=== PATIENT | male | born 1950 | race Caucasian/White ===

== ENCOUNTER → 2022-04-27 11:07 | Outpatient (CLI) | payer OTHER, SELFPAY ==
[2022-04-27 13:28] LABS: COVID-19 CEPHEID PCR (VTM/NP) Negative
== END ==
PROVIDERS: Referring Provider Internal Medicine Cardiovascular Disease; Visit Provider Internal Medicine Cardiovascular Disease
DX: I21.11 ST elevation (STEMI) myocardial infarction involving right coronary artery (principal); Z20.822 Contact with and (suspected) exposure to COVID-19
CPT/HCPCS: C9803; U0003; U0005

== ENCOUNTER 2023-11-07 08:32 | Day surgery (SDC) | payer OTHER, SELFPAY ==
[2023-10-31 11:42] VITALS: BMI 37.2
[2023-11-07] VITALS (11 sets, daily range): BP systolic 103–163; BP diastolic 57–97; PULSE 54–87; RESP 12–18; TEMP 35.9–36.7; O2SAT 91–99; BMI 37.2; BMI 38.7
--- NOTE | 2023-11-07 06:00 | DI.RAD.S_ITS ---
PROCEDURE: XR KNEE RT 1TO2V INDICATIONS: TKA TECHNIQUE: 2 view(s) of the knee acquired. COMPARISON: None. FINDINGS: Bones: Patient is status post knee joint arthroplasty. Hardware components are in expected positions. Visualized bony structures are intact. Soft tissues: Overlying postoperative changes are noted. IMPRESSION: Expected immediate postoperative appearance, status post total right knee arthroplasty. Dictated by: Marv Galvan M.D. on 11/07/2023 at 16:52 Approved by: Marv Galvan M.D. on 11/07/2023 at 16:53
[2023-11-07] MEDS: ACETAMINOPHEN 325 MG TABLET 975 MG PO (09:09)
[2023-11-07] MEDS: VANCOMYCIN 1,000 MG/200 ML PIGGYBACK 200 MG IV (10:20)
--- NOTE | 2023-11-07 10:56 | PM.PREOP ---
Pre-operative Note Interval Note History & Physical reviewed/Exam performed by Physician: Yes Changes to H&P: No
--- NOTE | 2023-11-07 10:57 | P.OP_ITS ---
Operative Date/Time/Diagnoses Date of procedure: 11/07/23 Time of procedure: 11:30 Pre-op diagnosis: Right knee OA Post-op diagnosis: same Procedure & Clinicians Procedure: Right total knee arthroplasty navigated with Cori robotic assistance Same procedure as scheduled: Yes Indications: The patient has had progressively worsening right knee pain with radiographic changes consistent with arthritis. Non-operative management has failed and the patient has requested total knee replacement. The risks, benefits and alternatives to surgery were discussed with the patient prior to proceeding. Risks discussed included, but were not limited to, failure to relieve pain, stiffness, infection, nerve damage, deep venous thrombosis, pulmonary embolism, stroke, coma, heart attack, permanent paralysis and , as well as the potential need for eventual revision of the prosthetic. Surgeon: Sharee Martinez Loan Operations Specialist: Tamica Garay Click Yes if Unassisted: Yes Anesthesia Type: Spinal Operative Notes Findings: Severe right knee OA, adequate stability Closure Type: primary Specimen(s): none sent Prosthetic devices, grafts, tissues, transplants, or devices: Martinez and nephew journey BCS 2 size 7 femur, size 6 tibia, 9 mm polyethylene, patella 35 oval Estimated Blood Loss (mL): 250 Blood products transfused: none Tourniquet time (min): 117 Procedure in detail: The patient was seen in the pre-operative area, where the patient identified the right knee as the operative site and this was marked with my initials. The patient received pre-operative antibiotics, and was taken to the operating room and placed on the operative table in the supine position. After satisfactory anesthesia, a aircraft time clerk out was performed. The right leg was encircled with a tourniquet about the proximal thigh, and the leg was prepared from the toes to the tourniquet with ChloroPrep in the usual fashion and draped through sterile drapes. The leg was elevated and exsanguinated with Eschmark bandage and the tourniquet inflated to [250] mmHg pressure. A PA was used during the procedure and was essential for intraoperative retraction and safe implantation of the components. The knee was approached through an approximately 18 cm incision centered over the patella and carried into the knee through a medial parapatellar arthrotomy. A portion of the medial and lateral meniscus was resected. Soft tissue was carefully mobilized around the patella the patella was measured with a caliper. Bone was resected from the patella and the patellar height was reconstituted with up an appropriate sized patellar component. A cover was then placed on the patella. A small amount of additional medial and lateral meniscus was resected. The ACL and PCL were released. Two Cori pins were placed in the femur and in the tibia with a tibial guide for robot assisted navigation. The patella was measured and 9 mm of bone was resected from the patella. It was an oval patella. Drill holes were made for patellar component. There was good bahai of the patella thickness. The patient was placed through a range of motion measurements were taken for stressed and nonstress range of motion knee with plan for robotic assisted resection of the distal femur and proximal tibia. The femur and tibia were carefully traced and navigated. A plan was taken and improved. A bur was used to resect the femoral bone for the distal femoral cut. The 5 in 1 cutting block was applied. Rotation and overall position was carefully checked. Finishing cuts were made on the femur with the 5 in 1 block. It looked like adequate resection of the anterior and posterior bone. The guide was then placed on the tibial guide and carefully navigated. Oscillating saw was used to resect the proximal tibia. I then placed the knee in extension and checked for any residual bone and meniscus injected with Marcaine locally drained the popliteal cyst and achieved hemostasis posteriorly with the cautery. The patient was placed in extension residual medial and lateral meniscus as well as any residual bone was carefully resected. Hemostasis was achieved especially posteriorly. Additional local was injected into the posterior capsule. The femoral component was trial was placed and the notch was finished. The rotation was assessed and the appropriate size femoral guide was placed on the distal femur and finishing cuts were made. There was no evidence of notching. The anterior, posterior and chamfer cuts were then made. The posterior osteophytes and soft tissues were then removed. The posterior capsule was injected with part of a mixture of 60 ml 0.25% Marcaine mixed with 266 mg Exparel for post operative pain control. The remainder of this mixture was injected into the capsule and subcutaneous tissues during cement curing. The tibial and femoral components were then placed and the knee placed through a range of motion. Range of motion was [0-130], with good stability throughout the range. The trials were then removed, and the tibia was finished. The bone was prepared with pulsatile lavage, and dried with a sponge. Cement was applied and the final prosthetics placed. Excess cement was removed during and after cement curing. A brief Betadine soak was performed. After confirming there was no extruded cement posteriorly, the final tibial insert was placed. The knee was copiously irrigated and the tourniquet deflated. Hemostasis was obtained with the bovie cautery. The capsule was closed with interrupted nonabsorbable suture. The subcutaneous layer was closed with barbed sutures, and the skin with a running 3-0 V-Lock suture and Surgical glue. An Aquacel Ag dressing was applied and the patient was taken to recovery having tolerated the procedure well. Complications: none Post-operative Condition: stable Disposition: Acute Care Plan for aftercare: The patient will be maintained on a standard total knee replacement protocol with weight bearing as tolerated. The patient will receive aspirin and sequential compression devices for DVT prophylaxis. The patient will be discharged home when safe for the home environment.
[2023-11-07] MEDS: CEFAZOLIN VIAL 3 GM in SODIUM CHLORIDE 0.9% 100 ML IV (11:50)
[2023-11-07] MEDS: TRANEXAMIC ACID 1,000 MG VIAL 1000 MG INJ ×2 (11:50→14:14)
--- NOTE | 2023-11-07 12:25 | SUR.OPER ---
Supine on padded OR bed. Pillow under head, arms secured on padded armboards <90 degree abduction. Safety belt across torso. Non-operative leg secured with tape over blanket over lower leg. Operative leg secured in DeMayo/Aditya/Nathe positioner. Foam padded brace at thigh of operative leg.
[2023-11-07] MEDS: BUPIVACAINE 0.25% (PF) 60 ML, EPINEPHrine 0.3 MG INJ (12:31)
[2023-11-07] MEDS: BUPIVACAINE LIPOSOME 266 MG/20 ML VIAL INJ (12:32)
[2023-11-07] MEDS: LACTATED RINGERS 1,000 ML 100 ML IV (15:35)
[2023-11-07] MEDS: INSULIN LISPRO 100 UNIT/ML 3ML VIAL SUBCUT ×2 (16:57→20:40)
[2023-11-07] MEDS: ACETAMINOPHEN 325 MG TABLET 650 MG PO ×2 (16:58→22:25)
[2023-11-07] MEDS: IBUPROFEN 400 MG TABLET PO ×3 (16:59→22:29)
[2023-11-07] MEDS: OXYCODONE IR 5 MG TABLET PO ×2 (18:28→22:29)
[2023-11-07] MEDS: DOCUSATE 100 MG CAPSULE PO (20:42)
[2023-11-07] MEDS: ATORVASTATIN 20 MG TABLET 80 MG PO (20:42)
[2023-11-07] MEDS: CEFAZOLIN 2 GM/100 ML PREMIX 100 ML IV (20:42)
[2023-11-07] MEDS: ASPIRIN EC 81 MG TABLET PO (20:42)
[2023-11-08] MEDS: CEFAZOLIN 2 GM/100 ML PREMIX 100 ML IV (03:45)
[2023-11-08 06:13] LABS: Hematocrit 41.4 % (41-53); Hemoglobin 13.8 g/dL (13.5-17.5)
[2023-11-08] MEDS: OXYCODONE IR 5 MG TABLET PO (06:50)
[2023-11-08] MEDS: IBUPROFEN 400 MG TABLET PO (06:51)
--- NOTE | 2023-11-08 07:13 | P.DS_ITS ---
History of Present Illness History of Present Illness Chief complaint: Right TKA Robot Narrative: Bill is a pleasent 73 year old male who is POD# 1 s/p R TKA w/ Dr. Martinez. He is lying comfortably in bed this morning during interview. He reports he is doing well overall. Pain is mild-moderate and well controlled with oral pain medications. He has picked up his post-op meds from his retail pharmacy already. Has ice machine and walker at home. Lives at home with family who are going to help with patients immediate post-op recovery. Has been able to get up and walk around his room, still needs to see PT today prior to d/c however. Denies chest pain, SOB, fever, chills, nausea, vomitng. Operative Date/Time/Diagnoses Date of procedure: 11/07/23 Time of procedure: 11:30 Pre-op diagnosis: Right knee OA Post-op diagnosis: same Procedure & Clinicians Procedure: Right total knee arthroplasty navigated with Cori robotic assistance Same procedure as scheduled: Yes Indications: The patient has had progressively worsening right knee pain with radiographic changes consistent with arthritis. Non-operative management has failed and the patient has requested total knee replacement. The risks, benefits and alternatives to surgery were discussed with the patient prior to proceeding. Risks discussed included, but were not limited to, failure to relieve pain, stiffness, infection, nerve damage, deep venous thrombosis, pulmonary embolism, stroke, coma, heart attack, permanent paralysis and , as well as the potential need for eventual revision of the prosthetic. Surgeon: Sharee Martinez Extrusion Former: Tamica Garay Click Yes if Unassisted: Yes Anesthesia Type: Spinal Discharge Providers Provider Discharge Date: 11/08/23 Primary care physician: Mathieu Shell MD Consults: 10/31/23 12:34 Consult to Anesthesiology Routine Comment: Consulting Provider: Anesthesiologist Reason for consultation: Surgeon requested re: Cardiac history 11/07/23 06:00 Consult to Anesthesiology Routine Comment: Consulting Provider: Anesthesiologist Reason for consultation: Regional block for post operative pain control 11/07/23 15:26 Consult to Discharge Planning Routine Comment: Consult to Occupational Therapy Evaluate & Treat Comment: Physician Instructions: Evaluate and treat Consult to Physical Therapy Evaluate & Treat Comment: Physician Instructions: postop TKA protocol Discharge provider: Tamica Garay PA-C Summary Hospital Course Discharge Diagnosis: Right knee OA s/p R TKA Hospital Course: Uncomplicated hospital course Exam Vital Signs (past 8 hours): Oxygen Delivery Method Nasal Cannula Oxygen Flow Rate 2 Const General: cooperative, healthy appearing and comfortable Resp Effort & Inspection: normal respiratory effort and able to speak in complete sentences Cardio Other: Extremities appear well perfused, brisk capillary refill. Skin Other: Clean and dry Aquacel dressing in place of patients right anterior knee. Neuro General: patient alert, patient awake and patient oriented x3 Extrem Other: R Knee AROM 5-75 Sensation intact to all toes equally. 5/5 strength wtih PF, DF, EHL. Hip flexion with out pain. Claves soft and non-tender bilaterally. Objective Labs 11/08/23 05:30 Labs: Laboratory Results - last 24 hr 11/08/23 05:30 Hgb 13.8 Hct 41.4 PFSH Medical History (Updated 10/31/23 @ 12:22 by Keila Jean RN) History of COVID-19 (2022) Melanoma Umbilical hernia Type 2 diabetes mellitus Nephrolithiasis Hyperuricemia HTN (hypertension) Dyslipidemia Diverticulitis Inferior myocardial infarction (10/2021) Surgical History (Updated 10/31/23 @ 12:15 by Keila Jean RN) S/P excision of lipoma History of carpal tunnel surgery of right wrist History of kidney surgery (12/27/20) History of surgery Hx of heart artery stent (10/2021) Hx of heart artery stent (~04/2022) Social History household members: spouse Smoking Status: Former smoker alcohol intake: never Discharge Assessment & Plan Assessment and Plan Assessment: Stable s/p R TKA for R knee OA Plan of Treatment: Okay to d/c to home today pending PT evaluation. The patient will be maintained on a standard total knee replacement protocol with weight bearing as tolerated. Continue ASA BID for 6 weeks for DVT prophylaxis Continue mulitimodal pain management, meds sent already, has ice machine at home. Continue to work on mobilization with outpatient PT Keep dressing clean and dry, leave in place until 2 week follow up appointment at [facility] Discharge Plan Discharge Plan Patient Disposition: Home Provider Discharge Comment: Follow up at [facility] in 2 weeks for post-op appointment. Discharge orders & Medications Discharge Orders: Discharge (Order); Ordered 11/08/23 Ordered By: Tamica Garay Prescriptions: New acetaminophen 325 mg Tablet 650 mg PO Q6H Qty: 90 0RF aspirin 81 mg Tablet,Delayed Release (Dr/Ec) 81 mg PO BID Qty: 90 0RF docusate sodium 100 mg Capsule 100 mg PO BID PRN (Reason: constipation) Qty: 30 0RF ibuprofen 400 mg Tablet 400 mg PO Q4H Qty: 90 0RF oxycodone 5 mg Tablet 5 mg PO Q4-6H PRN (Reason: Pain, Moderate (4-6)) Qty: 30 0RF Continued metoprolol succinate 100 mg Tablet Extended Release 24 Hr 100 mg PO DAILY aspirin 81 mg Tablet,Delayed Release (Dr/Ec) 81 mg PO DAILY telmisartan 40 mg Tablet 40 mg PO DAILY allopurinol 300 mg Tablet 300 mg PO DAILY metformin 500 mg Tablet Extended Release 24 Hr 1,000 mg PO DAILY rosuvastatin 40 mg Tablet 40 mg PO DAILY Jardiance 25 mg Tablet 25 mg PO QAM Follow up/Referrals: Mathieu Shell MD [Primary Care Provider] - Sharee Martinez MD [Physician] - 11/20/23 4:00 pm (Appt:11/20 @ 4:00with Dr Martinez @ [facility] ) Diet/Activity/Treatments Diet: Diet as Tolerated Activity: Weight bearing as tolerated Cold/Heat Therapy: Ice to the knee for pain control Skin/Wound/Dressing Care Report to your healthcare provider any signs of infection, such as:: chills, fever, night sweats, unusual drainage and unusual redness Dressing: Keep dressing clean and dry, do not remove until 2 week post-op appointment. No soaking the incision in pools or tubs. No topical lotions or creams to the incision site. If dressing becomes saturated or dirty okay to replace with clean and dry gauze or call our office. Visit Report/Discharge Packet Instructions: DI for Knee Replacement, DI for Prescription Opioid Use Stand Alone Forms: Patient Portal/API Discharge Data Primary Care Provider: Mathieu Shell Attending Provider: Sharee Martinez Quality VTE Deep Vein Thrombosis/Pulmonary Embolism Present on Admission: No
--- NOTE | 2023-11-08 08:03 | CM.DANOTE ---
Initial DCP Assessment Visit Reviewed EMR for pt's medical status and anticipated d/c needs. Met with pt at bedside to introduce self and role. Pt found to be awake/alert/oriented, and able to discuss d/c preferences. Plan is to d/c home today after working with therapies, spouse will transport once he's medically cleared for d/c. Payor: [employer] Attending: Sharee Martinez Pt is a 73 year-old M placed in OPIB post R-knee total arthroplasty surgery. He had a hx of worsening right knee pain despite trying multiple conservative therapies, including injections, exercise modification, and exercises. He states that he is feeling well and is ready to return home. Pt will f/u with Ortho in 2-weeks for post-op appt, he has a walker and a cane for home mobility. No further d/c needs identified for CM at this time. Discharge Planning/Care Management CM Discharge Assessment Start: 11/08/23 08:02 Freq: Status: Active Protocol: Document 11/08/23 08:02 DPL (Rec: 11/08/23 08:03 DPL [id number]) Discharge Planning Assessment Assigned Car Pusher OMAIRA Mendez Advance Directives? No History Provided By Patient,Medical Record Has Patient been admitted in last 30 No days? Prior Living Arrangements House Household Members spouse Type of transporation used prior to Drives own vehicle admit Independent with ADL's Yes Is patient alert and oriented? Yes Caregiver for Another No Community Services used prior to Physical Therapy admission: DME Already Rented / Owned FWW / Walker,Cane Patient/Family Preference OP PT Therapy Barriers to Discharge No Discharge Plan Home Community Services Occupational Therapy Transportation Arrangement Spouse Referrals Initiated None needed Whiteboard Updated in Patient Room with Yes name and ext. # of Car Pusher Review Status In Process Please Provide Date Initial DC 11/08/23 Assessment Was Performed Pre-Anesthesia Assessment Start: 10/31/23 11:42 Freq: Status: Active Protocol: Document 10/31/23 11:42 CAB (Rec: 10/31/23 12:33 CAB [id number]) Pre-Anesthesia Assessment Preferred Name Bill Patient Information Reviewed Via Phone Assessment Assessment Completed With Patient Diagnostic Results BMP/CMP,CBC,EKG Comment Outside labs/EKG scanned Primary Care Provider Mathieu Shell Specialist Seen Arborer,Orthopedist Primary Language Kyrgyz Glass Cutter Hand Required No Height 185.42 cm Weight 127.913 kg Body Mass Index (BMI) 37.2 Hearing Ability Normal Visual Impairment No Limitations Visual Assist None Dentition Type Teeth, Natural Present,Teeth, Missing Barriers to Learning None Hx Anesthesia Reactions No Hx Family Anesthesia Reaction No Hx Malignant Hyperthermia No Hx Blood Transfusions No Anesthesia Review Requested Yes: Surgeon requested re: Cardiac history alcohol intake never Smoking Status Former smoker how long ago did patient quit smoking Quit 1974 Substance Use Type does not use Pain Present Pain Reported Musculoskeletal Symptoms Abnormal Gait,Back Pain, Difficulty Walking,Joint Pain, Neck Pain History of Falling (Recent or History of No ) Patient is completely paralyzed or No completely immobile Mental Status Oriented to own ability Is patient on oxygen? No Does patient have HAQ/SOB Yes: With excessive walking, pt feels due to deconditioning Hx Sleep Apnea No Currently Taking a Beta Miriam Yes: Metoprolol Can You Climb a Flight of Stairs Without Yes SOB Hx Chest Pain No Hx SOB Yes Hx Syncope or Dizziness No Anti-Coagulant Therapy Yes: 81mg ASA-pt will check with PCP if needed to hold or continue Has a Arborer Yes: Pre-op visit 06/06/[address] Bledsoe @ [facility] Cardiac Testing No Hx Pacemaker/ICD No Pacemaker Rep Required? No Cardiac Clearance Received Yes Comment Cardiac records scanned and in surgery folder for dos review Diet Type At Home Regular Dysphagia No Gastrointestinal Symptoms Reflux Chronic UTI No Bladder Pattern Frequency Urinary Catheter Present No Hx Urinary Self Catheterization No Diabetes Yes: Pt does not check blood sugar at home HgbA1C 7.7 Date 10/11/23 Comment I don't have to check my blood sugar, I'm a type 2 Patient No Lactating No Hx Drug Resistant Organism No Presence of External or Internal Medical Yes: Cardiac stents Devices Received a COVID vaccine? Yes Received all doses? Yes Marital Status Lives With spouse Current Living Arrangements House Number of Floors (Floors) Two Floors Support System Spouse Does the Patient Have Assistance After Yes Surgery Patient Discharge Plan Description Return Home Comment Pt not advised on length of stay per surgeon Feels Safe in Current Environment Yes Been Physically Hurt or Threatened By a No Person in Current Environment Do you have thoughts of harming yourself None or others? Are you currently considering suicide? No Do you have a plan to hurt yourself or No Plan others? Do You Have Any Spiritual Beliefs That No May Affect Your HC Choices? Do You Have Any Cultural Practices That No May Affect Your HC Choices? Comment Denominational Who Can We Speak to About Patient's Care Family, friends Identifying Code for Release of Patient Declines to issue Information Health Care Proxy/Next of Kin Jessica () Health Care Proxy Emergency Contact Name Jessica () Emergency Contact or [phone] Advance Directives? No Power of Pattern Scratcher No PAC Instructions Durable medical equipment, Medications to take/avoid, Nasal antibiotic,No ETOH/ petroleum product on skin DOS, NPO,Pre-surgical wash,Sensory aids,Sturdy shoes/comfortable clothes,Do not bring valuables and remove jewelry
[2023-11-08 08:28] VITALS: BP 114/66; PULSE 51; RESP 18; TEMP 36.1; O2SAT 93
[2023-11-08] MEDS: INSULIN LISPRO 100 UNIT/ML 3ML VIAL SUBCUT (08:39)
[2023-11-08] MEDS: allopurinoL 100 MG TABLET 300 MG PO (08:39)
[2023-11-08 08:40] VITALS: BP 114/76; PULSE 51
[2023-11-08] MEDS: METFORMIN XR 500 MG TABLET 1000 MG PO (08:40)
[2023-11-08] MEDS: ASPIRIN EC 81 MG TABLET PO (08:40)
[2023-11-08] MEDS: DOCUSATE 100 MG CAPSULE PO (08:40)
[2023-11-08] MEDS: LOSARTAN 50 MG TABLET PO (08:40)
--- NOTE | 2023-11-08 08:45 | OT.IP.EVAL ---
Current Diagnoses Unilateral primary osteoarthritis, right knee (11/07/23) Surgery Performed Operation Date: 11/07/23 10:45 Actual Procedures p Total Knee Arthroplasty - Robot(Right) - Sharee Martinez MD Past Medical History (Last Updated 10/31/23 @ 12:22 by Keila Jean, RN) Diverticulitis Dyslipidemia History of COVID-19 (2022) HTN (hypertension) Hyperuricemia Inferior myocardial infarction (10/2021) Melanoma Nephrolithiasis Type 2 diabetes mellitus Umbilical hernia Surgical History (Last Updated 10/31/23 @ 12:15 by Keila Jean RN) History of carpal tunnel surgery of right wrist History of kidney surgery (12/27/20) History of surgery Hx of heart artery stent (~04/2022) Hx of heart artery stent (10/2021) S/P excision of lipoma Occupational Therapy Inpatient Evaluation/Re-Eval M1 PT/OT-IP Prior Functional Status Start: 11/08/23 10:10 Freq: NEEDED Status: Active Protocol: Document 11/08/23 10:10 [facility] (Rec: 11/08/23 10:26 [facility] [id number]) Medical Review Prior Functional Status Medical History Reviewed Yes Communication Independent Mobility and Gait Pt states walking was limited to 50ft due to the pain. Pt did not use a device prior. Activities of Daily Living and IADL's Pt able to do all ADL and IADl needs but having to sit down for dressing needs now. Prior Functional Level (Other details) Pt has a supportive to assist with his needs at home. Social History Household Members spouse Living Arrangements House Number of Floors (Floors) Two Floors Number of Stairs To Enter/Railing? One 10 inch step to get into the house and wide enough to use the FWW to get through the doorway. Home Environment High Toilet,Walk in Shower Home Equipment Front Wheel Walker,Straight Cane,Shower Seat without Backrest,Hand Held Shower Employment Status Retired M2 OT-IP Current Condition Start: 11/08/23 10:10 Freq: Status: Active Protocol: Document 11/08/23 10:10 [facility] (Rec: 11/08/23 10:26 [facility] [id number]) Occupational Therapy Current Condition Current Condition Evaluation Date 11/08/23 Treatment Diagnosis S/P R TKA Diagnosis Onset Date 2/1/24 M3 OT- IP Subjective and Pain Start: 11/08/23 10:10 Freq: Status: Active Protocol: Document 11/08/23 10:10 [facility] (Rec: 11/08/23 10:26 [facility] [id number]) OT- Subjective Occupational Therapy Visit Type Type Initial Evaluation Visit Start Time 08:45 Visit Stop Time 09:30 Occupational Therapy Visit Comments Patient Comments Pt agreed to get up and get dressed. Pt's IV came out and nursing notified. Patient/Caregiver Goals TO go home. OT Pain Assessment Pain When Pain Assessed At Rest Pain Present Pain Present Denied Pain M4 OT- IP ADL's Start: 11/08/23 10:10 Freq: Status: Active Protocol: Document 11/08/23 10:10 [facility] (Rec: 11/08/23 10:26 [facility] [id number]) OT [id number] General Evaluation Self-Feeding Ability Independent OT ADL-Grooming General Evaluation Grooming Ability Independent OT ADL-Oral Care General Eval Oral Care Ability Independent OT ADL-Dressing General Eval Upper Body Dressing Ability Independent Lower Body Dressing Ability Maximum Assistance Comments OT Dressing Comments Able to show pt use of LB dressing equipment so able to randal/doff socks with shoe aid and track broom operator. Pt needing assist to help get his heels into the shoes. Pt states to just have his assist for his needs. Educated best to dress his RLE first and take out last. OT ADL-Toileting Comments OT Toileting Comments Pt not having to go. Educated best to stand to wipe and be mindful of his knee positioning. Suggested to have get up with him at night or use of the urinal. OT ADL-Bathing Comments OT Bathing Comments Not performed. M5 OT- IP IADL's Start: 11/08/23 10:10 Freq: Status: Active Protocol: Document 11/08/23 10:10 [facility] (Rec: 11/08/23 10:26 [facility] [id number]) OT-Instrumental Activities of Daily Living Deficits IADL Deficits Identified Deficits Home Safety Awareness Awareness of Need for Assistance at Home Good Awareness Ability to Problem Solve Emergency Able to Problem Solve Situations Medication Management Medication Management No Deficits Identified Money Management Money Management No Deficits Identified Meal Preparation Meal Preparation Caregiver Provides Assist Tip Mender Tip Mender Caregiver Provides Assist M6 OT- IP Functional Cognition Start: 11/08/23 10:10 Freq: Status: Active Protocol: Document 11/08/23 10:10 [facility] (Rec: 11/08/23 10:26 [facility] [id number]) Cognitive Factors Limiting Selfcare Function Cognitive Ability Level of Alertness Alert Patient Orientation Name,Age,Birthday,Month,Date, Year,Day of Week,Place, Situation Attention Span Ability Capable of Focused Attention, Capable of Sustained Attention Ability to Follow Commands Able to Follow Multi-Step Commands Cognitive Comments Cognitive Assessment Comments Intact OT- Vision and Hearing OT- Hearing Assessment OT- Hearing Assessment WFL OT- Vision Assessment Visual Acuity WFL Visual Attentiveness WFL Occular Pursuits WFL M7 OT- IP Mobility and Balance Start: 11/08/23 10:10 Freq: Status: Active Protocol: Document 11/08/23 10:10 [facility] (Rec: 11/08/23 10:26 [facility] [id number]) OT- Bed Mobility Assessment Supine to Sit Supine to Sit Assist Standby Assistance OT-Transfer Assessment Sit to and From Stand Sit to and from Stand Contact Guard Assistance, Minimal Assistance Transfers Transfer Ability Contact Guard Assistance Technique Transfer Destination Bed,Chair Transfer Technique Stand Step Pivot Devices Transfer Assistive Devices Gait Belt,Front Wheeled Walker Comments Mobility Comments Educated pt to use his hands to push up to stand and be sure not to twist when coming up. Initially pt needing MICHAEL and then after more practice CGA. CGA with FWW and at ths end able to do with SBA. Initially pt slightly hyperextending his right knee and needing tactile cue to tighten his quads. Pt wanting to try to get out of the bed on the left side his normal side and able to do , however is able to switch with his if needed. OT- Balance Assessment Sitting Balance and Reactions Static Sitting Balance Ability Normal Dynamic Sitting Balance Ability Good Standing Balance and Reactions Static Standing Balance Ability Good Dynamic Standing Balance Ability Fair M8 OT- IP Objective Assessments Start: 11/08/23 10:10 Freq: Status: Active Protocol: Document 11/08/23 10:10 [facility] (Rec: 11/08/23 10:26 [facility] [id number]) OT Gross Range of Motion Upper Extremity Range of Motion Assessment Within Functional Limits OT Strength Upper Extremity Strength Assessment Within Functional Limits M9 OT- IP Assessment and Plan Start: 11/08/23 10:10 Freq: Status: Active Protocol: Document 11/08/23 10:10 [facility] (Rec: 11/08/23 10:26 [facility] [id number]) OT Summary Assessment and Plan Potential Rehabilitation Potential Excellent Analytic Complexity at Evaluation Low Summary OT Impairments Strength,Balance,Functional Mobility,Dressing,Toileting, Bathing,Toilet Transfers, Shower Transfers,Activity Tolerance Progress Towards Goals Progressing Toward Goals Assessment Summary Pt low complexity and main barriers are pt will need assist to stand from lower surfaces, assist for dressing needs- otherwise best to get LB dressing equipment, and assist for bathing needs. Pt to go home with assist when medically stable and go to outpt PT. Goals Dressing Goal Independent,Non Destructive Evaluation Specialist,Sock Aid Toileting Goal Independent Bathing Goal Standby Assistance Toilet Transfer Goal Independent Shower Transfer Goal Independent Days to Meet Goals 5 Frequency of Treatment Frequency Of Treatment Once a Day Treatment Plan OT Treatment Plan ADL Training,Functional Mobility,Patient/Family Education,Discharge Planning Discharge Recommendations OT Discharge Recommendations Home with Assistance, Outpatient PT Home Equipment Needs LB dressing equipment Transportation Needs at Discharge Private Vehicle
--- NOTE | 2023-11-08 11:20 | PT.IIE ---
Current Diagnoses Unilateral primary osteoarthritis, right knee (11/07/23) Surgery Performed Operation Date: 11/07/23 10:45 Actual Procedures p Total Knee Arthroplasty - Robot(Right) - Sharee Martinez MD Surgical History (Last Updated 10/31/23 @ 12:15 by Keila Jean, RN) History of carpal tunnel surgery of right wrist History of kidney surgery (12/27/20) History of surgery Hx of heart artery stent (~04/2022) Hx of heart artery stent (10/2021) S/P excision of lipoma Medical History (Last Updated 10/31/23 @ 12:22 by Keila Jean, RN) Diverticulitis Dyslipidemia History of COVID-19 (2022) HTN (hypertension) Hyperuricemia Inferior myocardial infarction (10/2021) Melanoma Nephrolithiasis Type 2 diabetes mellitus Umbilical hernia Physical Therapy Inpatient Evaluation/Re-Eval M1 PT/OT-IP Prior Functional Status Start: 11/08/23 10:10 Freq: NEEDED Status: Discharge Protocol: Document 11/08/23 10:10 [facility] (Rec: 11/08/23 10:26 [facility] [id number]) Medical Review Prior Functional Status Medical History Reviewed Yes Communication Independent Mobility and Gait Pt states walking was limited to 50ft due to the pain. Pt did not use a device prior. Activities of Daily Living and IADL's Pt able to do all ADL and IADl needs but having to sit down for dressing needs now. Prior Functional Level (Other details) Pt has a supportive to assist with his needs at home. Social History Household Members spouse Living Arrangements House Number of Floors (Floors) Two Floors Number of Stairs To Enter/Railing? One 10 inch step to get into the house and wide enough to use the FWW to get through the doorway. Home Environment High Toilet,Walk in Shower Home Equipment Front Wheel Walker,Straight Cane,Shower Seat without Backrest,Hand Held Shower Employment Status Retired M1 PT/OT-IP Prior Functional Status Start: 11/08/23 12:51 Freq: NEEDED Status: Active Protocol: Document 11/08/23 11:20 [facility] (Rec: 11/08/23 13:07 [facility] [id number]) Medical Review Prior Functional Status Medical History Reviewed Yes Communication able to make needs known Mobility and Gait pt stated that he was modified independent with all mobilities and ambulation without AD Activities of Daily Living and IADL's per OT note: Pt able to do all ADL and IADl needs but having to sit down for dressing needs now. Social History Household Members spouse Living Arrangements House Number of Floors (Floors) Two Floors Number of Stairs To Enter/Railing? Pt stays on main level of the house has 1 step to enter the house Home Environment Standard Height Toilet,Walk in Shower Home Equipment Front Wheel Walker,Straight Cane,Shower Seat without Backrest,Hand Held Shower Employment Status Retired Additional Social History Comment has outpt PT setup M2 PT-IP Current Condition Start: 11/08/23 12:51 Freq: NEEDED Status: Active Protocol: Document 11/08/23 11:20 [facility] (Rec: 11/08/23 13:07 [facility] [id number]) Physical Therapy Current Condition Current Condition Evaluation Date 11/08/23 Treatment Diagnosis s/p R TKA; difficulty in walking Onset Date 11/07/23 M3 PT-IP Subjective Start: 11/08/23 12:51 Freq: NEEDED Status: Active Protocol: Document 11/08/23 11:20 [facility] (Rec: 11/08/23 13:07 [facility] [id number]) Subjective Physical Therapy Visit Type Type Initial Evaluation Visit Start Time 11:20 Visit Stop Time 12:15 Number of CHIP CRUSHER OPERATOR Visits 55 Physical Therapy Visit Comments Patient Comments agreeable to do PT Therapy Pain Assessment Pain When Pain Assessed At Rest Pain Present Pain Present Pain Reported Location Right Knee Intensity 1 Scale Used Numeric (0 - 10) Pain Management Techniques Distraction,Modification of Treatment,Re-positioning, Timing of Activity with Medications M4 PT-IP Mobility and Gait Start: 11/08/23 12:51 Freq: NEEDED Status: Active Protocol: Document 11/08/23 11:20 [facility] (Rec: 11/08/23 13:07 [facility] [id number]) PT-Bed Mobility Assessment Supine to Sit Supine to Sit Standby Assistance Sit to Supine Sit to Supine Standby Assistance PT-Transfer Assessment Sit to and From Stand Sit to and from Stand Contact Guard Assistance,1 Person Assistance,Use of Upper Extremities Equipment Transfer Assistive Device Gait Belt,Front Wheeled Walker Orthotic/Prosthetic Devices or Brace: No Transfers Transfer Destination Bed,Chair Transfer Technique Stand Step Pivot Transfer Ability Level of Assist Contact Guard Assistance,1 Person Assistance,Use of Upper Extremities Comments Mobility Comments pt sitting on the chair and agreeable to do PT. spouse in room and plans to assist pt at home. obtained PLOF and home set up from pt. reviewed post-op folder with pt and HEP. pt completed knee flexion stretching seated. pt completed sit to stand from the chair min A and max cues for techniques. pt ambulated in room using FWW min A and max cues for R quads activation. pt sat on EOB. completed bed mobility SBA. educated pt regarding RLE steadiness and how to activate quads for stability. pt ambulated in room again using FWW CGA to min A and cues for quads activation. educated pt and spouse how to do stairs. caregiver training conducted. educated spouse on how to assist pt and how to use safety belt. spouse was able to put safety belt on pt; assisted pt with sit to stand and ambulated pt towards platform step. pt completed up/down step using FWW and spouse assisting min A and cues. pt ambulated in the hallway using FWW ~ 40 ft CGA to min A. repeated up/down platform step again min A using with spouse assisting. pt ambulated back to his room and sat on the chair. call light and table placed within reach. left pt with spouse. pt and spouse without further concerns. Gait Assessment Gait Gait Assistance Required: Contact Guard Assist,Minimum Assistance Distance (Feet) 40 Able to Maintain Weight Bearing Status Yes During Gait Assistive Devices Assistive Device Gait Belt,Front Wheeled Walker Orthotic/Prosthetic Devices or Brace: No Gait Deviations General Gait Pattern Antalgic,Decreased Stride Length,Decreased Feet Clearance Factors Limiting Gait Function Factors Limiting Gait Function Decreased Activity Tolerance, Decreased Strength,Difficulty Following Directions,Limited Range of Motion,Pain,Poor Balance,Poor Safety Awareness Stair Climbing Assessment Evaluation Level of Assist On Stairs Minimal Assistance Devices Stair Climbing Assistive Devices Front Wheel Walker Technique/Endurance Stair Climbing Direction Ascend and Descend Stair Climbing Technique Step to Step Number of Steps Climbed 1 Query Text: Stair Climbing Set # Repetitions (reps) 2 PT-Balance Assessment Sitting Balance and Reactions Static Sitting Balance Ability Normal Dynamic Sitting Balance Ability Good Standing Balance and Reactions Static Standing Balance Ability Fair Dynamic Standing Balance Ability Fair Device Used FWW M5 PT-IP Objective Assessments Start: 11/08/23 12:51 Freq: NEEDED Status: Active Protocol: Document 11/08/23 11:20 [facility] (Rec: 11/08/23 13:07 [facility] [id number]) Orientation Orientation/Cognition Level of Alertness Alert Orientation Name,Place,Situation Language Function Ability No Deficits Noted Safety Awareness Decreased Safety Awareness Memory Description No Deficits Noted Gross Range of Motion Lower Extremity ROM Impairments R knee flexion: ~ 90 deg Strength Lower Extremity Strength Assessment Right Impaired Hip 3+/5 Knee 3+/5 Sensation Assessment Sensation Gross Sensation WNL Muscle Tone Muscle Tone WNL Yes M6 PT-IP Treatment Start: 11/08/23 12:51 Freq: NEEDED Status: Active Protocol: Document 11/08/23 11:20 [facility] (Rec: 11/08/23 13:07 [facility] [id number]) Physical Therapy Treatment Exercises Exercises Heel Slides,Seated Knee Flexion/Extension Education Education Provided Precautions,Weight Bearing Status,Safety M7 PT-IP Assessment and Plan Start: 11/08/23 12:51 Freq: NEEDED Status: Active Protocol: Document 11/08/23 11:20 [facility] (Rec: 11/08/23 13:07 [id number]) PT Summary Assessment and Plan Potential Rehabilitation Potential Good Status of Condition at Evaluation Stable Summary Impairments Pain,ROM,Strength,Balance, Coordination,Sensation,Tone, Cognition,Bed Mobility, Transfers,Gait,Activity Tolerance Assessment Summary pt is a 73 y/o M s/p R TKA POD 1 and is WBAT. pt requiring CGA to min A with mobility using FWW and plans to go home with spouse to assist. caregiver training conducted and spouse was able to assist pt safely. pt has outpt PT set up. pt may go home when medically stable. Goals Bed Mobility Goal Independent Transfer Goal Independent,Front Wheeled Walker Gait Goal Independent,Front Wheel Walker Gait Distance 250 Days to Meet Goals 5 Frequency of Treatment Frequency Of Treatment Twice a Day Treatment Plan Physical Therapy Treatment Plan Bed Mobility Training,Transfer Training,Gait Training, Therapeutic Exercise,Balance Retraining,Post Op Education, Discharge Planning,Hot or Cold Pack,Neuromuscular Re-ed, Coordination Retraining,Manual Therapy Weight Bearing Status Weight Bearing Status Weight Bear as Tolerated Allowed Weight Bearing Amount (enter % RLE WBAT or #) (%) Recommendations To Nursing Amount of Assist Needed 1 Person Assist Discharge Recommendations PT Discharge Recommendations Home with Assistance, Outpatient PT Transportation Needs at Discharge Private Vehicle
--- NOTE | 2023-11-08 11:20 | PT.IIE ---
Current Diagnoses Unilateral primary osteoarthritis, right knee (11/07/23) Surgery Performed Operation Date: 11/07/23 10:45 Actual Procedures p Total Knee Arthroplasty - Robot(Right) - Sharee Martinez MD Surgical History (Last Updated 10/31/23 @ 12:15 by Keila Jean, RN) History of carpal tunnel surgery of right wrist History of kidney surgery (12/27/20) History of surgery Hx of heart artery stent (~04/2022) Hx of heart artery stent (10/2021) S/P excision of lipoma Medical History (Last Updated 10/31/23 @ 12:22 by Keila Jean, RN) Diverticulitis Dyslipidemia History of COVID-19 (2022) HTN (hypertension) Hyperuricemia Inferior myocardial infarction (10/2021) Melanoma Nephrolithiasis Type 2 diabetes mellitus Umbilical hernia Physical Therapy Inpatient Evaluation/Re-Eval M1 PT/OT-IP Prior Functional Status Start: 11/08/23 10:10 Freq: NEEDED Status: Discharge Protocol: Document 11/08/23 10:10 [facility] (Rec: 11/08/23 10:26 [facility] [id number]) Medical Review Prior Functional Status Medical History Reviewed Yes Communication Independent Mobility and Gait Pt states walking was limited to 50ft due to the pain. Pt did not use a device prior. Activities of Daily Living and IADL's Pt able to do all ADL and IADl needs but having to sit down for dressing needs now. Prior Functional Level (Other details) Pt has a supportive to assist with his needs at home. Social History Household Members spouse Living Arrangements House Number of Floors (Floors) Two Floors Number of Stairs To Enter/Railing? One 10 inch step to get into the house and wide enough to use the FWW to get through the doorway. Home Environment High Toilet,Walk in Shower Home Equipment Front Wheel Walker,Straight Cane,Shower Seat without Backrest,Hand Held Shower Employment Status Retired M1 PT/OT-IP Prior Functional Status Start: 11/08/23 12:51 Freq: NEEDED Status: Active Protocol: Document 11/08/23 11:20 AB (Rec: 11/08/23 13:07 AB [id number]) Medical Review Prior Functional Status Medical History Reviewed Yes Communication able to make needs known Mobility and Gait pt stated that he was modified independent with all mobilities and ambulation without AD Activities of Daily Living and IADL's per OT note: Pt able to do all ADL and IADl needs but having to sit down for dressing needs now. Social History Household Members spouse Living Arrangements House Number of Floors (Floors) Two Floors Number of Stairs To Enter/Railing? Pt stays on main level of the house has 1 step to enter the house Home Environment Standard Height Toilet,Walk in Shower Home Equipment Front Wheel Walker,Straight Cane,Shower Seat without Backrest,Hand Held Shower Employment Status Retired Additional Social History Comment has outpt PT setup M2 PT-IP Current Condition Start: 11/08/23 12:51 Freq: NEEDED Status: Active Protocol: Document 11/08/23 11:20 AB (Rec: 11/08/23 13:07 AB [id number]) Physical Therapy Current Condition Current Condition Evaluation Date 11/08/23 Treatment Diagnosis s/p R TKA; difficulty in walking Onset Date 11/07/23 M3 PT-IP Subjective Start: 11/08/23 12:51 Freq: NEEDED Status: Active Protocol: Document 11/08/23 11:20 AB (Rec: 11/08/23 13:07 AB [id number]) Subjective Physical Therapy Visit Type Type Initial Evaluation Visit Start Time 11:20 Visit Stop Time 12:15 Number of INSPECTOR [employer] Visits 0 Physical Therapy Visit Comments Patient Comments agreeable to do PT Therapy Pain Assessment Pain When Pain Assessed At Rest Pain Present Pain Present Pain Reported Location Right Knee Intensity 1 Scale Used Numeric (0 - 10) Pain Management Techniques Distraction,Modification of Treatment,Re-positioning, Timing of Activity with Medications M4 PT-IP Mobility and Gait Start: 11/08/23 12:51 Freq: NEEDED Status: Active Protocol: Document 11/08/23 11:20 AB (Rec: 11/08/23 13:07 AB [id number]) PT-Bed Mobility Assessment Supine to Sit Supine to Sit Standby Assistance Sit to Supine Sit to Supine Standby Assistance PT-Transfer Assessment Sit to and From Stand Sit to and from Stand Contact Guard Assistance,1 Person Assistance,Use of Upper Extremities Equipment Transfer Assistive Device Gait Belt,Front Wheeled Walker Orthotic/Prosthetic Devices or Brace: No Transfers Transfer Destination Bed,Chair Transfer Technique Stand Step Pivot Transfer Ability Level of Assist Contact Guard Assistance,1 Person Assistance,Use of Upper Extremities Comments Mobility Comments pt sitting on the chair and agreeable to do PT. spouse in room and plans to assist pt at home. obtained PLOF and home set up from pt. reviewed post-op folder with pt and HEP. pt completed knee flexion stretching seated. pt completed sit to stand from the chair min A and max cues for techniques. pt ambulated in room using FWW min A and max cues for R quads activation. pt sat on EOB. completed bed mobility SBA. educated pt regarding RLE steadiness and how to activate quads for stability. pt ambulated in room again using FWW CGA to min A and cues for quads activation. educated pt and spouse how to do stairs. caregiver training conducted. educated spouse on how to assist pt and how to use safety belt. spouse was able to put safety belt on pt; assisted pt with sit to stand and ambulated pt towards platform step. pt completed up/down step using FWW and spouse assisting min A and cues. pt ambulated in the hallway using FWW ~ 40 ft CGA to min A. repeated up/down platform step again min A using with spouse assisting. pt ambulated back to his room and sat on the chair. call light and table placed within reach. left pt with spouse. pt and spouse without further concerns. Gait Assessment Gait Gait Assistance Required: Contact Guard Assist,Minimum Assistance Distance (Feet) 40 Able to Maintain Weight Bearing Status Yes During Gait Assistive Devices Assistive Device Gait Belt,Front Wheeled Walker Orthotic/Prosthetic Devices or Brace: No Gait Deviations General Gait Pattern Antalgic,Decreased Stride Length,Decreased Feet Clearance Factors Limiting Gait Function Factors Limiting Gait Function Decreased Activity Tolerance, Decreased Strength,Difficulty Following Directions,Limited Range of Motion,Pain,Poor Balance,Poor Safety Awareness Stair Climbing Assessment Evaluation Level of Assist On Stairs Minimal Assistance Devices Stair Climbing Assistive Devices Front Wheel Walker Technique/Endurance Stair Climbing Direction Ascend and Descend Stair Climbing Technique Step to Step Number of Steps Climbed 1 Query Text: Stair Climbing Set # Repetitions (reps) 2 PT-Balance Assessment Sitting Balance and Reactions Static Sitting Balance Ability Normal Dynamic Sitting Balance Ability Good Standing Balance and Reactions Static Standing Balance Ability Fair Dynamic Standing Balance Ability Fair Device Used FWW M5 PT-IP Objective Assessments Start: 11/08/23 12:51 Freq: NEEDED Status: Active Protocol: Document 11/08/23 11:20 AB (Rec: 11/08/23 13:07 AB [id number]) Orientation Orientation/Cognition Level of Alertness Alert Orientation Name,Place,Situation Language Function Ability No Deficits Noted Safety Awareness Decreased Safety Awareness Memory Description No Deficits Noted Gross Range of Motion Lower Extremity ROM Impairments R knee flexion: ~ 90 deg Strength Lower Extremity Strength Assessment Right Impaired Hip 3+/5 Knee 3+/5 Sensation Assessment Sensation Gross Sensation WNL Muscle Tone Muscle Tone WNL Yes M6 PT-IP Treatment Start: 11/08/23 12:51 Freq: NEEDED Status: Active Protocol: Document 11/08/23 11:20 AB (Rec: 11/08/23 13:07 AB [id number]) Physical Therapy Treatment Exercises Exercises Heel Slides,Seated Knee Flexion/Extension Education Education Provided Precautions,Weight Bearing Status,Safety M7 PT-IP Assessment and Plan Start: 11/08/23 12:51 Freq: NEEDED Status: Active Protocol: Document 11/08/23 11:20 AB (Rec: 11/08/23 13:07 [id number]) PT Summary Assessment and Plan Potential Rehabilitation Potential Good Status of Condition at Evaluation Stable Summary Impairments Pain,ROM,Strength,Balance, Coordination,Sensation,Tone, Cognition,Bed Mobility, Transfers,Gait,Activity Tolerance Assessment Summary pt is a 73 y/o M s/p R TKA POD 1 and is WBAT. pt requiring CGA to min A with mobility using FWW and plans to go home with spouse to assist. caregiver training conducted and spouse was able to assist pt safely. pt has outpt PT set up. pt may go home when medically stable. Goals Bed Mobility Goal Independent Transfer Goal Independent,Front Wheeled Walker Gait Goal Independent,Front Wheel Walker Gait Distance 250 Days to Meet Goals 5 Frequency of Treatment Frequency Of Treatment Twice a Day Treatment Plan Physical Therapy Treatment Plan Bed Mobility Training,Transfer Training,Gait Training, Therapeutic Exercise,Balance Retraining,Post Op Education, Discharge Planning,Hot or Cold Pack,Neuromuscular Re-ed, Coordination Retraining,Manual Therapy Weight Bearing Status Weight Bearing Status Weight Bear as Tolerated Allowed Weight Bearing Amount (enter % RLE WBAT or #) (%) Recommendations To Nursing Amount of Assist Needed 1 Person Assist Discharge Recommendations PT Discharge Recommendations Home with Assistance, Outpatient PT Transportation Needs at Discharge Private Vehicle
--- NOTE | 2023-11-08 12:33 | PC.NURSE ---
Pt discharged home at 1233, escorted off floor in wheelchair accompanied by spouse and hospital staff. IV removed, discharge teaching completed including follow up appointments, new medications and wound care. Questions and concerns addressed. Patient left the floor with all belongings.
== END 2023-11-08 12:35 | disposition home or self-care (01) ==
LOC: OR 08:33 → AC 15:19
PROVIDERS: PCP Internal Medicine; Referring Provider Orthopaedic Surgery; Visit Provider Orthopaedic Surgery
PROC: 0SRC0JZ Replacement of Right Knee Joint with Synthetic Substitute, Open Approach (ICD-10-PCS; CPT 27447; principal; 2023-11-07 10:45)
DX: M17.11 Unilateral primary osteoarthritis, right knee (principal); E11.40 Type 2 diabetes mellitus with diabetic neuropathy, unspecified; I10 Essential (primary) hypertension; I25.2 Old myocardial infarction; I25.10 Atherosclerotic heart disease of native coronary artery without angina pectoris; E78.5 Hyperlipidemia, unspecified; E66.9 Obesity, unspecified; Z68.38 Body mass index [BMI] 38.0-38.9, adult; Z79.84 Long term (current) use of oral hypoglycemic drugs; Z87.891 Personal history of nicotine dependence; Z95.5 Presence of coronary angioplasty implant and graft; Z85.820 Personal history of malignant melanoma of skin
CPT/HCPCS: 27447; 73560; 82962; 85014; 85018; 97161; 97165; 97530; 97535; C1776; C9290; J0171; J0690; J1100; J1815; J2405; J2704; J3010